=== PATIENT | female | born 1940 | race Caucasian/White ===

== ENCOUNTER 2022-05-16 13:48 | Emergency (ER) | payer OTHER ==
[~2022-05-16] VITALS: Ht 294.6 cm; Wt 65.8 kg
[~2022-05-16 13:48] MED LIST: CIPRO500 MG PO; COREG; COREG CR10 MG PO; DIOVAN HCT 320/1 TA1 PO; KAOPECTATE262 MG/15 PO; XARELTO20 MG PO; ZANTAC300 MG PO; ZOFRAN4 MG PO
== END 2022-05-16 19:02 | disposition home or self-care (01) ==
LOC: ER 13:48
DX: S00.31XA Abrasion of nose, initial encounter (principal); W18.30XA Fall on same level, unspecified, initial encounter; Y93.9 Activity, unspecified; Y92.219 Unspecified school as the place of occurrence of the external cause; Z91.013 Allergy to seafood; I10 Essential (primary) hypertension; S80.02XA Contusion of left knee, initial encounter